=== PATIENT | male | born 1960 | race Hispanic/Latino ===

== ENCOUNTER → 2020-12-07 | Outpatient (CLI) | payer MEDICARE ==
[~2020-12-07] MED LIST: AMLODIPINE BESYL5 MG PO; AZATHIOPRINE50 MG PO; CARVEDILOL3.125 MG PO; FEOSOL325 MG PO; FUROSEMIDE40 MG PO; GLIMEPIRIDE2 MG PO; LANTUS100 UNITS/ PO; LEVEMIR FL100 UNIT/1 SC; LEVOTHYROXINE75 MCG PO; LISINOPRIL10 MG PO; MULTI-VITAMIN1 EACH PO; NOVOLIN N100 UNIT/1 SQ; NOVOLOG MI100 UNITS/ SC; SPIRONOLACTONE25 MG PO; URSODIOL300 MG PO; VITAMIN C PO; VITAMIN D250 MCG PO; ZINC PO
[2020-12-07 10:35] LABS: BASOPHILS % 0.2 % (0.0-1.0); EOSINOPHILS # (AUTO) 0.1 (0.0-0.4); EOSINOPHILS % 1.4 % (0.0-6.0); HEMOGLOBIN 9.4 g/dL (14.0-18.0); LYMPHOCYTES # (AUTO) 0.9 (1.0-3.2); LYMPHOCYTES % 21.6 % (18.0-39.1); MEAN CORPUSCULAR HEMOGLOBIN 34.3 pg (28-32); MEAN CORPUSCULAR HGB CONC 36.2 g/dL (31-35); MEAN CORPUSCULAR VOLUME 94.9 fL (81-99); MONOCYTES # (AUTO) 0.5 (0.2-0.8); MONOCYTES % 11.2 % (4.4-11.3); NEUTROPHILS # (AUTO) 2.8 (2.1-6.9); NEUTROPHILS % 65.1 % (38.7-80.0); RED BLOOD COUNT 2.74 x10e6/uL (4.3-5.7); RED CELL DISTRIBUTION WIDTH 14.1 % (11.7-14.4)
[2020-12-07 10:45] LABS: PLATELET COUNT 36 x10e3/uL (140-360)
[2020-12-07 10:54] LABS: INR 1.27; PROTHROMBIN TIME 16.6 seconds (11.9-14.5)
[2020-12-07 10:55] LABS: PARTIAL THROMBOPLASTIN TIME 36.3 seconds (23.8-35.5)
[2020-12-07 10:56] LABS: ALBUMIN 3.5 g/dL (3.5-5.0); ALBUMIN/GLOBULIN RATIO 0.9 (0.8-2.0); ANION GAP 14.4 mmol/L (8-16); CALCIUM 8.7 mg/dL (8.4-10.2); CREATININE, SERUM 2.65 mg/dL (0.72-1.25); POTASSIUM 5.4 mmol/L (3.5-5.1)
== END | disposition home or self-care (01) ==
LOC: RAD 14:21 → EDSTATUS 12-10 06:30
PROVIDERS: ATTEND Internal Medicine Gastroenterology
DX: Z01.810 Encounter for preprocedural cardiovascular examination (principal); Z01.812 Encounter for preprocedural laboratory examination; Z20.822 Contact with and (suspected) exposure to COVID-19; Z12.11 Encounter for screening for malignant neoplasm of colon; K74.69 Other cirrhosis of liver; I10 Essential (primary) hypertension; E11.9 Type 2 diabetes mellitus without complications; E66.9 Obesity, unspecified; Z71.3 Dietary counseling and surveillance; Z53.8 Procedure and treatment not carried out for other reasons; Z68.37 Body mass index [BMI] 37.0-37.9, adult
CPT/HCPCS: 36415; 80053; 85025; 85610; 85730; 93005; U0002